=== PATIENT | male | born 1940 | race Caucasian/White ===

== ENCOUNTER 2022-01-24 11:22 | Outpatient (CLI) | payer MEDICARE, SELFPAY ==
--- NOTE | 2022-01-24 11:28 | ECG_ITS ---
Measurements Intervals [place] Rate: 62 P: 58 MO: 192 QRS: 37 QRSD: 111 T: 43 QT: 393 QTc: 402 Interpretive Statements SINUS RHYTHM WITH SINUS ARRHYTHMIA MODERATE INTRAVENTRICULAR CONDUCTION DELAY [110+ ms QRS DURATION] NONSPECIFIC ST ABNORMALITY ABNORMAL ECG NO PREVIOUS ECG AVAILABLE FOR COMPARISON Electronically Signed On 01-24-2022 12:29:19 CDT by Gopal Gregorio M.D.
== END 2022-01-24 11:23 | disposition home or self-care (01) ==
LOC: ANHSURGERY 11:28
PROVIDERS: PCP Family Medicine; Visit Provider Otolaryngology
DX: Z01.818 Encounter for other preprocedural examination (principal); I10 Essential (primary) hypertension; R94.31 Abnormal electrocardiogram [ECG] [EKG]
CPT/HCPCS: 93005

== ENCOUNTER 2022-02-01 00:36 | Day surgery (SDC) | payer MEDICARE, SELFPAY ==
--- NOTE | 2022-01-18 09:48 | PC.NURSE ---
Report to the Outpatient Waiting Room, entrance under the green pavilion located off [facility], at time __0815 on date __02/01/22 . OR Time: _1015 . - You and your visitor will be asked a series of questions to screen for COVID 19 for your protection. - Only one visitor is allowed at this time. - The patient visitor is requested to leave or wait in car when not with patient. - A mask is required within the hospital. Patients may have clear liquids (water, carbonated beverages, clear teas, apple juice) until 3 hours prior to surgery with a maximum of 20 ounces. - No food from midnight until time of surgery - Infants may have breast milk until 4 hours before surgery, infant formula 6 hours prior to surgery. - Children will be allowed to drink immediately following surgery. If applicable, please bring a bottle or sippy cup to assist with drinking. Juice, water, soda, and popsicles are readily available. For infants on formula, please bring formula the day of surgery. Pacifiers are allowed. Take the following medications with a SIP of water the morning of surgery: _INHALER, Medications to discontinue per physician _PT STATES ASPIRIN 5 DAYS PRE OP PER DR TORRES, ALL VITAMINS AND SUPPLEMENTS 3 DAYS PRE OP Date to take last dose__ASPIRIN 01/26/22 ALL VIT/SUPP 01/28/22 Please no make-up, nail guatemalan, hairspray, perfume, deodorant, or body powder the day of surgery. No jewelry (including any body piercings) or valuables the day of surgery, leave them at home. Please take a shower or bath the night before, or the morning of, surgery with an antibacterial soap. Wear comfortable, loose fitting clothing. Children are encouraged to wear pajamas. - Jewelry must be removed prior to entering the operating room. Rings and piercings that are not removed may be cut off. - The hospital will not accept responsibility for valuables. - Please leave all valuables, including medications, at home the day of surgery. If you are going home after surgery, a licensed tower truck driver must drive you home. - NO public transportation without another adult. - We recommend that an adult stay with you for 24 hours following discharge. - We also recommend that you do not drive, make important decision, drink alcoholic beverages, or take any drugs that were not prescribed by your health care provider for at least 24 hours after your discharge time. For Pediatric surgeries, we recommend two adults accompany the child home (only one inside the building at this time). Follow any additional instructions given to you from your surgeon. If you or anyone in your household have experienced Covid symptoms in the past week, please notify your surgeon or the nurse liaison at the phone number below for possible testing. Telephone instructions given to ___PATEINT and asked if any additional questions and then verbalized understanding. Patient advised to call surgeon office or pre surgery nurse liaison [phone] if any additional questions.
[2022-01-18 09:59] VITALS: BMI 25.1
--- NOTE | 2022-01-29 06:44 | PM.HPGS ---
History of Present Illness History of Present Illness Consent: Risks, benefits, and alternatives have been discussed and questions answered. Patient agrees to proceed with procedure. Chief complaint: tongue lesion Narrative: Agustín Zaragoza is a 81 year old male with an area of leukoplakia approximately 4 cm in length on the right lateral tongue Review of Systems Review of Systems: All systems reviewed & are unremarkable except as noted in HPI and below PMFSH Past Medical History Medical History Arthritis Asthma COPD (chronic obstructive pulmonary disease) Family History Family History Mother Hypertension Cerebrovascular accident Sibling Hypertension Cerebrovascular accident Social History Social History Smoking status: Never smoker Alcohol intake: current Drinks per week: 2 Alcohol use details: WINE Substance use: never Spiritual care concerns: No Comments social family medical history unremarkable Meds Home Medications and Allergies Home Medications Medication Instructions Recorded Confirmed Type albuterol sulfate 90 mcg/actuation 2 inh inhalation Q4-6H PRN 01/16/22 01/18/22 History breath activated powder Shortness Of Breath inhaler,sensor amlodipine 5 mg tablet 5 mg PO HS 01/16/22 01/18/22 History aspirin 81 mg tablet,delayed 81 mg PO DAILY 01/16/22 01/18/22 History release (Adult Low Dose Aspirin) atorvastatin 10 mg tablet 10 mg PO HS 01/16/22 01/18/22 History fluticasone furoate 200 1 inh inhalation DAILY 01/16/22 01/18/22 History mcg-vilanterol 25 mcg/dose inhalation powder (Breo Ellipta) gabapentin 100 mg capsule 300 mg PO HS 01/16/22 01/18/22 History lactobacillus combination no.9 4 4,000 mmu cells PO HS 01/16/22 01/18/22 History billion cell capsule (Adult 50 Plus Probiotic) multivitamin 1 tablet PO HS 01/16/22 01/18/22 History tamsulosin 0.4 mg capsule 0.4 mg PO HS 01/16/22 01/18/22 History vardenafil 20 mg tablet 20 mg PO PRN PRN Erectile 01/16/22 01/18/22 History Dysfunction ipratropium bromide 21 mcg (0.03 2 spray intranasal BID 01/18/22 01/18/22 History %) nasal spray Allergies Allergy/AdvReac Type Severity Reaction Status Date / Time No Known Allergies Allergy Verified 01/18/22 09:36 Exam Narrative: chest clear heart without murmurs large area of leukoplakia on the right lateral tongue Assessment and Plan Assessment and plan (1) Leukoplakia, 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
[2022-02-01] VITALS (8 sets, daily range): BP systolic 95–141; BP diastolic 46–86; PULSE 49–69; RESP 14–16; TEMP 36.4–36.6; O2SAT 98–100
--- NOTE | 2022-02-01 06:28 | WPDHPUPDATE1 ---
History and Physical Update Update Date/Time: 02/01/22 06:28 History and Physical has been reviewed, including an updated exam of the patient. There are NO changes in the patient's condition. Risks, benefits, and alternatives have been discussed and questions answered. Patient agrees to proceed with procedure.
[2022-02-01] MEDS: LACTATED RINGERS 1,000 ML 30 ML IV CONT (09:30)
--- NOTE | 2022-02-01 09:38 | WPDANESEPPF ---
Anes - Initial Pre Proc Eval Procedure: Operation Date: 02/01/22 10:45 Proposed Procedures p Excision Right Tongue Lesion - Dilip Juares MD Date/Time: 02/01/22 09:38 Surgeon: Dilip Juares MD Pre Op Diagnosis: tongue lesion Patient Data Age: 81 Gender: M Height: 1.83 m Weight: 83.95 kg Allergies Allergy/AdvReac Type Severity Reaction Status Date / Time No Known Allergies Allergy Verified 01/18/22 09:36 Home Medications Medication Instructions Recorded Confirmed Type albuterol sulfate 90 mcg/actuation 2 inh inhalation Q4-6H PRN 01/16/22 01/18/22 History breath activated powder Shortness Of Breath inhaler,sensor amlodipine 5 mg tablet 5 mg PO HS 01/16/22 01/18/22 History aspirin 81 mg tablet,delayed 81 mg PO DAILY 01/16/22 01/18/22 History release (Adult Low Dose Aspirin) atorvastatin 10 mg tablet 10 mg PO HS 01/16/22 01/18/22 History fluticasone furoate 200 1 inh inhalation DAILY 01/16/22 01/18/22 History mcg-vilanterol 25 mcg/dose inhalation powder (Breo Ellipta) gabapentin 100 mg capsule 300 mg PO HS 01/16/22 01/18/22 History lactobacillus combination no.9 4 4,000 mmu cells PO HS 01/16/22 01/18/22 History billion cell capsule (Adult 50 Plus Probiotic) multivitamin 1 tablet PO HS 01/16/22 01/18/22 History tamsulosin 0.4 mg capsule 0.4 mg PO HS 01/16/22 01/18/22 History vardenafil 20 mg tablet 20 mg PO PRN PRN Erectile 01/16/22 01/18/22 History Dysfunction ipratropium bromide 21 mcg (0.03 2 spray intranasal BID 01/18/22 01/18/22 History %) nasal spray Patient hx anesthesia problems: none Family hx anesthesia problems: none Results Review: All pre-operative results and documents have been reviewed as part of the pre-operative evaluation. [facility] Past Medical History Medical History Arthritis Asthma COPD (chronic obstructive pulmonary disease) Surgical History Surgical History (Updated 02/01/22 @ 09:52 by John Mcginnis MD) H/O hernia repair H/O sinus surgery History of cholecystectomy History of total hip arthroplasty Family History Family History Mother Hypertension Cerebrovascular accident Sibling Hypertension Cerebrovascular accident Social History Social History Smoking status: Never smoker Alcohol intake: current Drinks per week: 2 Alcohol use details: WINE Substance use: never Living arrangements: with family Spiritual care concerns: No Anes - Eval Final PreProcedure Day of Procedure 02/01/22 09:38 Patient weight: normal Heart: regular rate and rhythm Lungs: clear to auscultation Airway: Mallampati scale class II Neurological: alert and oriented Last oral intake: >/= 8 hours ASA classification: III Anesthetic plan: proceed Anesthesia type and monitoring: general Results Review: All pre-operative results and documents have been reviewed as part of the pre-operative evaluation. Informed Consent: The patient's anesthetic plan and its attendant risks and benefits were discussed with the patient/family/POA. Questions were solicited and answers provided to the satisfaction of the patient/family/POA.
[2022-02-01] MEDS: LIDO 1%/EPINEPHRINE 1:100,000 10 ML VIAL 5 ML INFILTRATE (10:13)
--- NOTE | 2022-02-01 10:29 | W.PM.PROC2 ---
Procedure Note - Detailed Date of Procedure 02/06/22 Pre-op Diagnosis tongue lesion Post-op Diagnosis Same Procedure Performed Excision leukoplakia right lateral tongue Surgeon Dilip Juares MD Anesthesia General Description of Procedure After induction general anesthesia the area of leukoplakia in the right lateral tongue was injected with xylocaine with adrenaline the anterior portion was excised the base cauterized and closed with 3-0 chromic
--- NOTE | 2022-02-01 10:53 | SUR.PHASEI ---
oral airway removed at 1045.
== END 2022-02-01 12:28 | disposition home or self-care (01) ==
PROVIDERS: PCP Family Medicine; Visit Provider Otolaryngology
PROC: (CPT 41110; principal; 2022-02-01 10:45)
DX: K13.21 Leukoplakia of oral mucosa, including tongue (principal); Z79.82 Long term (current) use of aspirin; Z79.51 Long term (current) use of inhaled steroids; M19.90 Unspecified osteoarthritis, unspecified site; J45.909 Unspecified asthma, uncomplicated; J44.9 Chronic obstructive pulmonary disease, unspecified; Z90.49 Acquired absence of other specified parts of digestive tract
CPT/HCPCS: 41110; 88305; 93005; J1100; J2405; J2704; J7120